=== PATIENT | male | born 1960 | race Two or more races ===

== ENCOUNTER 2018-08-24 09:28 | Emergency (ER) | payer OTHER ==
[~2018-08-24] VITALS: Ht 167.6 cm; Wt 79.4 kg
--- NOTE | 2018-08-24 09:38 | NUR ---
SREE GONSALVES AT BEDSIDE FOR MSE.
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
[2018-08-24] MEDS ORDERED: HYDROMORPHONE 1 MG/1 ML DISP.SYRIN IM ONE (09:45)
[2018-08-24] MEDS ORDERED: KETOROLAC TROMETHAMINE 30 MG INJ IM ONE (09:45)
[2018-08-24] MEDS ORDERED: HYDROMORPHONE 1 MG/1 ML DISP.SYRIN ONE (09:49)
[2018-08-24] MEDS ORDERED: KETOROLAC TROMETHAMINE 60 MG INJ IM ONE (09:49)
--- NOTE | 2018-08-24 10:07 | NUR ---
Patient discharged to home in stable conditon. Written and verbal after care instructions given. Patient verbalizes understanding of instructions. ALL BELONGINGS W/ PT. PT SELF-AMBULATED W/O DIFFICULTY. PT INSTRUCTED NOT TO DRIVE OR OPERATE ANY DANGEROUS MACHINERY DUE TO ADMINISTRATION OF NARCOTIC MEDICATION. PT VERBALIZES UNDERSTANDING - STATES HE WILL TAKE UBER HOME.
[2018-08-24 10:08] VITALS: BP 131/73
== END 2018-08-24 10:08 | disposition home or self-care (01) ==
LOC: ER 09:28
DX: G89.29 Other chronic pain (principal); M54.42 Lumbago with sciatica, left side; F17.210 Nicotine dependence, cigarettes, uncomplicated; F12.10 Cannabis abuse, uncomplicated; V49.9XXA Car occupant (driver) (passenger) injured in unspecified traffic accident, initial encounter; Y93.89 Activity, other specified; Y92.410 Unspecified street and highway as the place of occurrence of the external cause; Y99.8 Other external cause status
CPT/HCPCS: 96372 ×2; 99283; J1170; J1885; A4663

== ENCOUNTER 2018-11-07 19:39 | Emergency (ER) | payer OTHER ==
[~2018-11-07] VITALS: Ht 167.6 cm; Wt 79.4 kg
[2018-11-07] MEDS ORDERED: KETOROLAC TROMETHAMINE 30 MG INJ IM ONE (20:00)
--- NOTE | 2018-11-07 20:10 | NUR ---
BROUGHT TO CT VIA WHEELCHAIR, ACCOMPANIED BY SWITCHER PT NAD
[2018-11-07] MEDS ORDERED: KETOROLAC TROMETHAMINE 30 MG INJ ONE (20:15)
--- NOTE | 2018-11-07 20:30 | NUR ---
PT BACK FROM CT ABLE TO TOLERATE PN MEDS ORDERED
[2018-11-07] MEDS ORDERED: predniSONE 20 MG TABLET PO ONE (20:45)
[2018-11-07] MEDS ORDERED: predniSONE 20 MG TABLET ONE (20:51)
--- NOTE | 2018-11-07 21:00 | NUR ---
Patient discharged to home in stable conditon. Written and verbal after care instructions given. Patient verbalizes understanding of instructions. walked out of ER with no distress noted.
[2018-11-07 21:01] VITALS: BP 120/82
== END 2018-11-07 21:01 | disposition home or self-care (01) ==
LOC: ER 19:40
DX: S13.4XXA Sprain of ligaments of cervical spine, initial encounter (principal); S33.5XXA Sprain of ligaments of lumbar spine, initial encounter; F17.210 Nicotine dependence, cigarettes, uncomplicated; F12.10 Cannabis abuse, uncomplicated; R20.2 Paresthesia of skin; V49.9XXA Car occupant (driver) (passenger) injured in unspecified traffic accident, initial encounter; Y93.89 Activity, other specified; Y92.89 Other specified places as the place of occurrence of the external cause; Y99.8 Other external cause status
CPT/HCPCS: 72125; 96372; 99284; J1885; J7512; A4663

== ENCOUNTER 2018-12-15 08:26 | Emergency (ER) | payer OTHER ==
[~2018-12-15] VITALS: Ht 167.6 cm; Wt 74.4 kg
[2018-12-15] MEDS ORDERED: LISI-603 PO (08:59)
[2018-12-15] MEDS ORDERED: CLOP75TA15 PO (08:59)
[2018-12-15] MEDS ORDERED: ASPI-605 PO (08:59)
[2018-12-15] MEDS ORDERED: TEST5GEL2 TP (08:59)
[2018-12-15] MEDS ORDERED: METO-356 PO (08:59)
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
[2018-12-15] MEDS ORDERED: IBUPROFEN 800 MG TABLET PO ONE (09:15)
[2018-12-15] MEDS ORDERED: HYDROCODONE/APAP 10-325 MG TABLET PO ONE (09:15)
[2018-12-15] MEDS ORDERED: IBUPROFEN 800 MG TABLET ONE (09:17)
[2018-12-15] MEDS ORDERED: HYDROCODONE/APAP 10-325 MG TABLET ONE (09:18)
--- NOTE | 2018-12-15 09:20 | NUR ---
Patient reports no allergies to ibuprofen, Also reports he will not be driving home
--- NOTE | 2018-12-15 10:12 | NUR ---
patient taken to car to get cell phone so he can call for ride home. Patient waiting in lobby for ride
== END 2018-12-15 10:12 | disposition home or self-care (01) ==
LOC: ER 08:26
DX: S93.602A Unspecified sprain of left foot, initial encounter (principal); F55.3 Abuse of steroids or hormones; F17.210 Nicotine dependence, cigarettes, uncomplicated; F12.10 Cannabis abuse, uncomplicated; Z71.6 Tobacco abuse counseling; Z76.5 Malingerer [conscious simulation]; Z79.01 Long term (current) use of anticoagulants; Z79.82 Long term (current) use of aspirin; Z79.899 Other long term (current) drug therapy; W22.8XXA Striking against or struck by other objects, initial encounter; Y93.89 Activity, other specified; Y92.89 Other specified places as the place of occurrence of the external cause; Y99.8 Other external cause status
CPT/HCPCS: 73630; A4663